=== PATIENT | female | born 1955 | race Hispanic/Latino ===

== ENCOUNTER 2017-10-22 02:14 | Emergency (ER) | payer OTHER ==
[2017-10-22 02:51] LABS: #Basophils 0.1 thou/uL (0.0-0.2); #Eosinphils 0.4 thou/uL (0.0-0.7); #Lymphocytes 1.9 thou/uL (1.20-3.40); #Monocytes 0.8 thou/uL (0.11-0.59); #Neutrophils 9.3 thou/uL (1.40-6.50); %Basophils 0.5 % (0.0-1.0); %Eosinophils 3.1 % (0.0-10.0); %Lymphocytes 15.3 % (21.0-51.0); %Monocytes 6.2 % (0.0-10.0); Hematocrit 36.9 % (36.0-47.0); Mean Platelet Volume 8.1 fL (7.4-10.4); White Blood Cell (WBC) Count 12.4 thou/uL (4.8-10.8)
[2017-10-22 03:13] LABS: ALT (SGPT) 14 U/L (8-55); AST (SGOT) 15 U/L (5-34); Alkaline Phosphatase 160 U/L (40-150); Anion Gap 14 mmol/L (10-20); BUN (Urea Nitrogen) 52 mg/dL (9.8-20.1); Bilirubin, Total 0.6 mg/dL (0.2-1.2); CK (CPK) 221 U/L (29-168); Calc. Creatinine Clearance 0 mL/min (70-130); Calcium 9.2 mg/dL (7.8-10.44); Carbon Dioxide 26 mmol/L (23-31); Chloride 104 mmol/L (98-107); Estimated GFR-MDRD 8; Globulin 4.1 g/dL (2.4-3.5); Protein, Total 7.7 g/dL (6.0-8.3)
[2017-10-22 03:29] LABS: Troponin I 0.014 ng/mL (< 0.028)
[2017-10-22] MEDS ORDERED: hydrOXYzine 25 MG TAB ONE (05:57)
--- NOTE | 2017-10-22 07:45 | RAD ---
EXAM: CHEST 2 VIEWS: HISTORY: Dyspnea. COMPARISON: None. FINDINGS: Upper normal cardiac silhouette. Pulmonary vessels are slightly prominent. Patchy interstitial opac ities with more focal alveolar consolidation in the right upper lobe. No pleural effusion. No pneum othorax. IMPRESSION: 1. Upper normal cardiac silhouette with mild pulmonary vascular prominence. 2. Possible volume overload with interstitial edema and focal alveolar opacity in the right upper lo be. Continued surveillance. POS: [facility]
--- NOTE | 2017-11-27 14:19 | EKG ---
Test Reason : Blood Pressure : / mmHG Vent. Rate : 097 BPM Atrial Rate : 097 BPM P-R Int : 120 ms QRS Dur : 074 ms QT Int : 342 ms P-R-T Axes : 022 026 051 degrees QTc Int : 434 ms Normal sinus rhythm with sinus arrhythmia Normal ECG Confirmed by JAMES HOU D.O. ([id number]), newspaper editor MARGOTH ROPER ([id number]) on 11/27/2017 2:19:28 PM Referred By: Confirmed By:JAMES HOU D.O.
== END 2017-10-22 06:05 | disposition home or self-care (01) ==
LOC: ERS 02:14
DX: R07.89 Other chest pain (principal); I12.0 Hypertensive chronic kidney disease with stage 5 chronic kidney disease or end stage renal disease; N18.6 End stage renal disease; Z99.2 Dependence on renal dialysis
CPT/HCPCS: 71020; 80053; 82550; 82553; 84484; 85025; 93005

== ENCOUNTER 2017-12-13 13:56 | Emergency (ER) | payer OTHER ==
[2017-12-13 15:19] LABS: #Basophils 0.1 thou/uL (0.0-0.2); #Eosinphils 0.5 thou/uL (0.0-0.7); #Monocytes 0.6 thou/uL (0.11-0.59); #Neutrophils 6.7 thou/uL (1.40-6.50); %Eosinophils 5.3 % (0.0-10.0); %Lymphocytes 19.9 % (21.0-51.0); %Monocytes 6.2 % (0.0-10.0); %Neutrophils 67.6 % (42.0-75.0); Hemoglobin 11.5 g/dL (12.0-16.0); Mean Corpuscular HGB CONC 32.4 g/dL (32.0-36.0); Mean Corpuscular Volume 96.5 fL (81.0-99.0); Mean Platelet Volume 8.5 fL (7.4-10.4); Platelet Count 212 thou/uL (130-400); RBC Distribution Width 12.2 % (11.5-14.5); Red Blood Cell (RBC) Count 3.72 mill/uL (4.20-5.40); White Blood Cell (WBC) Count 9.9 thou/uL (4.8-10.8)
[2017-12-13 15:45] LABS: ALT (SGPT) 18 U/L (8-55); AST (SGOT) 17 U/L (5-34); Albumin 3.8 g/dL (3.4-4.8); Alkaline Phosphatase 187 U/L (40-150); Anion Gap 15 mmol/L (10-20); BUN (Urea Nitrogen) 59 mg/dL (9.8-20.1); Bilirubin, Total 0.5 mg/dL (0.2-1.2); Calc. Creatinine Clearance 0 mL/min (70-130); Calcium 9.3 mg/dL (7.8-10.44); Carbon Dioxide 25 mmol/L (23-31); Chloride 103 mmol/L (98-107); Estimated GFR-MDRD 7; Glucose 166 mg/dL (80-115); Potassium 5.1 mmol/L (3.5-5.1); Protein, Total 7.8 g/dL (6.0-8.3); Sodium 138 mmol/L (136-145)
== END 2017-12-13 15:55 | disposition left against medical advice (07) ==
LOC: ERS 13:56
DX: Z53.21 Procedure and treatment not carried out due to patient leaving prior to being seen by health care provider (principal)
CPT/HCPCS: 36415; 80053; 85025

== ENCOUNTER 2018-01-12 22:25 | Emergency (ER) | payer OTHER ==
--- NOTE | 2018-01-12 23:35 | RAD ---
TWO VIEW CHEST 01/12/18 COMPARISON: 10/22/17 INDICATION: Cough. FINDINGS: there is no consolidation, effusion or pneumothorax The cardiac silhouette is at upper limits of norm al in size. There is vascular calcifications and osseous degenerative change. Metallic clips overlie the right abdomen. IMPRESSION: No focal consolidation. POS: [facility]
== END 2018-01-13 00:35 | disposition home or self-care (01) ==
LOC: ERS 22:25
DX: J11.1 Influenza due to unidentified influenza virus with other respiratory manifestations (principal); I12.0 Hypertensive chronic kidney disease with stage 5 chronic kidney disease or end stage renal disease; N18.6 End stage renal disease; F41.9 Anxiety disorder, unspecified; F32.9 Major depressive disorder, single episode, unspecified; Z99.2 Dependence on renal dialysis
CPT/HCPCS: 71046; 93005

== ENCOUNTER 2018-04-27 16:51 | Emergency (ER) | payer OTHER ==
[2018-04-27] MEDS ORDERED: HYDROcodone/Acetaminophen 10/325 mg Tablet ONE (17:33)
--- NOTE | 2018-04-27 18:04 | RAD ---
RIGHT WRIST: 04/27/18 Three views. INDICATIONS: Fall with injury and pain to right wrist. Bones show osteopenia. No evidence of fracture identified. IMPRESSION: 1. No evidence of acute fracture. 2. Osteopenia which appears more prominent than expected for patient's age. Recommend clinical c orrelation. POS: [facility]
--- NOTE | 2018-04-27 18:05 | RAD ---
RIGHT KNEE: 04/27/18 Four views. HISTORY: Fall with injury to right knee. There are mild degenerative changes. There is a subchondral lesion involving the medial femoral condy le which could represent osteochondral lesion. There is no evidence of fracture. No evidence of joint effusion. IMPRESSION: 1. No evidence of acute fracture. 2. Degenerative change. Evidence of an osteochondral lesion involving the medial femoral condyle . POS: [facility]
== END 2018-04-27 19:42 | disposition home or self-care (01) ==
LOC: ERS 16:51
DX: S63.501A Unspecified sprain of right wrist, initial encounter (principal); S80.01XA Contusion of right knee, initial encounter; M85.661 Other cyst of bone, right lower leg; W01.0XXA Fall on same level from slipping, tripping and stumbling without subsequent striking against object, initial encounter

== ENCOUNTER 2018-08-04 14:41 | Emergency (ER) | payer OTHER ==
[2018-08-04] MEDS ORDERED: Ketorolac Tromethamine 60 MG/2 ML VIAL ONE (17:32)
[2018-08-04 17:45] LABS: Bilirubin Negative (Negative); Blood, Urine Small (Negative); Clarity CLEAR (Clear); Glucose, Urine (Dipstick) 250 mg/dL (Negative); Leukocyte Negative (Negative); Nitrite Negative (Negative); Protein, Urine (Dipstick) 100 mg/dL (Neg-Trace); Urobilinogen 0.2 mg/dL (0.2-1.0)
[2018-08-04 17:47] LABS: Bacteria/HPF None Seen HPF (None Seen); Hyaline Casts/LPF 0-3 HYALINE CAST LPF (0-3 Hyaline); Pathc Cast-AUWi Flag 0.58 (0-2.49); Squamous Epithelial 0-3 HPF (0-3); WBC/HPF None Seen HPF (0-3)
[2018-08-04] MEDS ORDERED: Methocarbamol 500 MG TAB PO SCH (18:45)
== END 2018-08-04 20:33 | disposition home or self-care (01) ==
LOC: ERS 14:41
DX: M54.9 Dorsalgia, unspecified (principal); I13.2 Hypertensive heart and chronic kidney disease with heart failure and with stage 5 chronic kidney disease, or end stage renal disease; I50.9 Heart failure, unspecified; E11.22 Type 2 diabetes mellitus with diabetic chronic kidney disease; N18.6 End stage renal disease; E78.5 Hyperlipidemia, unspecified; F41.9 Anxiety disorder, unspecified; F32.9 Major depressive disorder, single episode, unspecified
CPT/HCPCS: 81003; 81015; 96372; J1885

== ENCOUNTER 2019-02-02 22:28 | Observation (INO) | payer OTHER ==
[2019-02-02 23:32] LABS: #Basophils 0.1 thou/uL (0.0-0.2); #Eosinphils 0.4 thou/uL (0.0-0.7); #Lymphocytes 1.9 thou/uL (1.20-3.40); #Monocytes 0.5 thou/uL (0.11-0.59); #Neutrophils 5.9 thou/uL (1.40-6.50); %Basophils 0.8 % (0.0-1.0); %Eosinophils 4.5 % (0.0-10.0); %Lymphocytes 21.4 % (21.0-51.0); %Monocytes 5.6 % (0.0-10.0); %Neutrophils 67.7 % (42.0-75.0); Hemoglobin 12.5 g/dL (12.0-16.0); Mean Corpuscular HGB CONC 32.6 g/dL (32.0-36.0); Mean Corpuscular Hemoglobin 31.7 pg (27.0-31.0); Mean Corpuscular Volume 97.4 fL (78.0-98.0); Mean Platelet Volume 8.4 fL (7.4-10.4); Platelet Count 258 thou/uL (130-400); RBC Distribution Width 13.5 % (11.5-14.5); Red Blood Cell (RBC) Count 3.95 mill/uL (4.20-5.40); White Blood Cell (WBC) Count 8.8 thou/uL (4.8-10.8)
[2019-02-02] MEDS ORDERED: Aspirin 325 MG TAB ONE (23:43)
--- NOTE | 2019-02-02 23:49 | RAD ---
CHEST ONE VIEW: Indication: Dyspnea. Comparison: 07-31-17 FINDINGS: The lungs are clear. Heart size is within normal limits. There are stable vascular calcifications inv olving the aortic arch. Chronic osseous changes are stable. IMPRESSION: No acute cardiopulmonary abnormality. POS: [facility]
[2019-02-02 23:53] LABS: ALT (SGPT) 15 U/L (8-55); AST (SGOT) 16 U/L (5-34); Albumin 3.7 g/dL (3.4-4.8); Alkaline Phosphatase 142 U/L (40-150); Anion Gap 15 mmol/L (10-20); BUN (Urea Nitrogen) 53 mg/dL (9.8-20.1); Bilirubin, Total 0.6 mg/dL (0.2-1.2); Calc. Creatinine Clearance 0 mL/min (70-130); Calcium 9.2 mg/dL (7.8-10.44); Carbon Dioxide 24 mmol/L (23-31); Chloride 101 mmol/L (98-107); Estimated GFR-MDRD 6; Globulin 3.9 g/dL (2.4-3.5); Glucose 268 mg/dL (80-115); Potassium 5.2 mmol/L (3.5-5.1); Protein, Total 7.6 g/dL (6.0-8.3); Sodium 135 mmol/L (136-145)
[2019-02-03 03:02] LABS: Troponin I Less than 0.010 ng/mL (< 0.028)
[2019-02-03] MEDS ORDERED: Acetaminophen 325 MG TAB ONE (05:29)
[2019-02-03 06:24] LABS: Troponin I Less than 0.010 ng/mL (< 0.028)
[2019-02-03] MEDS ORDERED: Ondansetron PF 4 MG/2 ML Vial IVP PRN (10:08)
[2019-02-03] MEDS ORDERED: Ondansetron ODT 4 MG TAB PO PRN (10:08)
[2019-02-03] MEDS ORDERED: Loperamide HCl 2 MG CAP PO PRN (10:08)
[2019-02-03] MEDS ORDERED: Acetaminophen 325 MG TAB PO PRN (10:08)
[2019-02-03] MEDS ORDERED: Senokot S 8.6-50 MG TAB PO PRN (10:08)
[2019-02-03] MEDS ORDERED: Enoxaparin Sodium 30 MG/0.3 ML SYRINGE SC SCH (10:15)
[2019-02-03] MEDS ORDERED: Nitroglycerin 0.4 MG TAB 1 EACH PO PRN (10:24)
[2019-02-03] MEDS ORDERED: Nitroglycerin 0.4 MG TAB 1 EACH ONE (10:35)
[2019-02-03] MEDS ORDERED: Metoprolol Tartrate 25 MG TAB PO SCH (21:00)
[2019-02-04] MEDS ORDERED: Furosemide 40 MG TAB PO SCH (09:00)
[2019-02-04] MEDS ORDERED: Atorvastatin Calcium 20 MG TAB PO SCH (09:00)
[2019-02-04] MEDS ORDERED: Aspirin 81 mg Enteric Coated Tablet PO SCH (09:00)
== END 2019-02-03 14:23 | disposition home or self-care (01) ==
LOC: ERS 22:28 → ERHOLD 02-03 02:00
PROVIDERS: ADMIT Internal Medicine; ATTEND Internal Medicine
DX: R06.02 Shortness of breath (principal); R07.89 Other chest pain; I13.2 Hypertensive heart and chronic kidney disease with heart failure and with stage 5 chronic kidney disease, or end stage renal disease; E11.22 Type 2 diabetes mellitus with diabetic chronic kidney disease; N18.6 End stage renal disease; I50.9 Heart failure, unspecified; E03.9 Hypothyroidism, unspecified; E78.5 Hyperlipidemia, unspecified; E78.00 Pure hypercholesterolemia, unspecified; F41.9 Anxiety disorder, unspecified; F32.9 Major depressive disorder, single episode, unspecified; Z79.4 Long term (current) use of insulin; Z88.2 Allergy status to sulfonamides; Z99.2 Dependence on renal dialysis
CPT/HCPCS: 36415; 71045; 80053; 83880; 84484; 85025; 93005; 94760; G0378

== ENCOUNTER 2019-12-19 06:55 | Emergency (ER) | payer OTHER, SELFPAY ==
--- NOTE | 2019-12-19 07:46 | RAD ---
XR Ankle Lt 3 View STANDARD History: Fall. Pain. Comparison: None. Findings: Transverse and arterial medial malleolar fracture. Obliquely oriented distal tibial fractur e through the syndesmosis. Although not well seen, dorsal to be a posterior malleolar fracture. High-grade midfoot degenerative change. Large plantar calcaneal spur. Impression: Trimalleolar fracture with minimal lateral talar shift.
[2019-12-19] MEDS ORDERED: Morphine 4 MG/ML VIAL ONE (08:59)
--- NOTE | 2019-12-19 10:05 | CT ---
EXAM: CT brain without contrast HISTORY: Fall with head trauma COMPARISON: None TECHNIQUE: Multiple contiguous axial images were obtained and a CT of the brain without contrast. FINDINGS: The brain is normal in morphology and attenuation without focal lesions or confluent areas of infarction. There is no evidence of hydrocephalus, intracranial hemorrhage, or extra-axial fluid collection. The calvarium and overlying soft tissues are unremarkable. The visualized paranasal sinuses and masto id air cells are well aerated. IMPRESSION: No evidence of acute intracranial abnormality
== END 2019-12-19 12:00 | disposition home or self-care (01) ==
LOC: ERS 06:55
DX: S82.852A Displaced trimalleolar fracture of left lower leg, initial encounter for closed fracture (principal); E03.9 Hypothyroidism, unspecified; I50.9 Heart failure, unspecified; E78.5 Hyperlipidemia, unspecified; E11.22 Type 2 diabetes mellitus with diabetic chronic kidney disease; I13.2 Hypertensive heart and chronic kidney disease with heart failure and with stage 5 chronic kidney disease, or end stage renal disease; N18.6 End stage renal disease; F41.9 Anxiety disorder, unspecified; F32.9 Major depressive disorder, single episode, unspecified; W01.0XXA Fall on same level from slipping, tripping and stumbling without subsequent striking against object, initial encounter
CPT/HCPCS: 27818; 70450; 96372; J2270

== ENCOUNTER 2020-03-29 02:12 | Emergency (ER) | payer OTHER, SELFPAY ==
[2020-03-29 02:44] LABS: #Eosinphils 0.4 thou/uL (0.0-0.7); #Lymphocytes 1.7 thou/uL (1.20-3.40); #Monocytes 0.6 thou/uL (0.11-0.59); #Neutrophils 10.9 thou/uL (1.40-6.50); %Basophils 0.1 % (0.0-1.0); %Eosinophils 2.8 % (0.0-10.0); %Lymphocytes 12.2 % (21.0-51.0); %Monocytes 4.3 % (0.0-10.0); %Neutrophils 80.6 % (42.0-75.0); Hemoglobin 11.8 g/dL (12.0-16.0); Mean Corpuscular HGB CONC 33.3 g/dL (32.0-36.0); Mean Corpuscular Hemoglobin 32.6 pg (27.0-31.0); Mean Platelet Volume 7.9 fL (7.4-10.4); Platelet Count 236 thou/uL (130-400); RBC Distribution Width 12.7 % (11.5-14.5); Red Blood Cell (RBC) Count 3.63 mill/uL (4.20-5.40); White Blood Cell (WBC) Count 13.5 thou/uL (4.8-10.8)
[2020-03-29 03:08] LABS: ALT (SGPT) 10 U/L (8-55); AST (SGOT) 12 U/L (5-34); Albumin 3.6 g/dL (3.4-4.8); Alkaline Phosphatase 111 U/L (40-110); Anion Gap 17 mmol/L (10-20); BUN (Urea Nitrogen) 37 mg/dL (9.8-20.1); Bilirubin, Total 0.6 mg/dL (0.2-1.2); Calc. Creatinine Clearance 0 mL/min (70-130); Calcium 8.4 mg/dL (7.8-10.44); Carbon Dioxide 26 mmol/L (23-31); Chloride 100 mmol/L (98-107); Estimated GFR-MDRD 6; Globulin 3.6 g/dL (2.4-3.5); Glucose 236 mg/dL (80-115); Potassium 5.6 mmol/L (3.5-5.1); Protein, Total 7.2 g/dL (6.0-8.3); Sodium 137 mmol/L (136-145)
--- NOTE | 2020-03-29 07:36 | RAD ---
Exam: Chest one view HISTORY:Dyspnea. Shortness of breath. Comparison: 02/02/2019 FINDINGS: Cardiac silhouette:Cardiomegaly. Aorta: Atherosclerosis. Pulmonary vessels: Normal Costophrenic angles: Bibasilar veil-like opacity suggesting pleural effusion LUNGS: Bibasilar interstitial and alveolar opacities. Pneumothorax: None Osseous abnormalities: None IMPRESSION: 1. Possible congestive heart failure. Superimposed airspace disease in the lung bases cannot be exclu ded. 2. Continued surveillance
--- NOTE | 2020-04-08 16:31 | EKG ---
Test Reason : EMERGENCY Blood Pressure : / mmHG Vent. Rate : 095 BPM Atrial Rate : 095 BPM P-R Int : 124 ms QRS Dur : 080 ms QT Int : 352 ms P-R-T Axes : 038 034 044 degrees QTc Int : 442 ms Normal sinus rhythm Possible Left atrial enlargement Borderline ECG Confirmed by GLENDA STEARNS ([id number]), material expeditor SANTIAGO BAER ([id number] on 04/08/2020 4:31:39 PM Referred By: Confirmed By:GLENDA STEARNS
== END 2020-03-29 04:10 | disposition home or self-care (01) ==
LOC: ERS 02:12
DX: I13.2 Hypertensive heart and chronic kidney disease with heart failure and with stage 5 chronic kidney disease, or end stage renal disease (principal); N18.6 End stage renal disease; I50.9 Heart failure, unspecified; R06.00 Dyspnea, unspecified; E11.22 Type 2 diabetes mellitus with diabetic chronic kidney disease; E03.9 Hypothyroidism, unspecified; E78.5 Hyperlipidemia, unspecified; E78.00 Pure hypercholesterolemia, unspecified; Z79.899 Other long term (current) drug therapy; Z79.4 Long term (current) use of insulin; F41.9 Anxiety disorder, unspecified; F32.9 Major depressive disorder, single episode, unspecified
CPT/HCPCS: 36415; 71045; 80053; 83880; 84484; 85025; 93005

== ENCOUNTER 2020-05-26 23:15 | Emergency (ER) | payer OTHER ==
--- NOTE | 2020-05-26 23:56 | RAD ---
XR Chest 1 View Portable History: Shortness of breath Comparison: Radiograph March 2020 Findings: Heart size mildly enlarged. Mild edema. Small effusions. No pneumothorax. No acute osseous abnormality. Impression: Moderate volume overload.
[2020-05-27 00:13] LABS: #Basophils 0.1 thou/uL (0.0-0.2); #Eosinphils 0.4 thou/uL (0.0-0.7); #Lymphocytes 2.1 thou/uL (1.20-3.40); #Monocytes 0.5 thou/uL (0.11-0.59); #Neutrophils 5.8 thou/uL (1.40-6.50); %Basophils 0.8 % (0.0-1.0); %Eosinophils 4.6 % (0.0-10.0); %Lymphocytes 23.7 % (21.0-51.0); %Monocytes 5.5 % (0.0-10.0); %Neutrophils 65.4 % (42.0-75.0); Hemoglobin 12.2 g/dL (12.0-16.0); Mean Corpuscular HGB CONC 33.3 g/dL (32.0-36.0); Mean Corpuscular Hemoglobin 32.2 pg (27.0-31.0); Mean Corpuscular Volume 96.7 fL (78.0-98.0); Mean Platelet Volume 9.3 fL (7.4-10.4); Platelet Count 226 thou/uL (130-400); RBC Distribution Width 12.4 % (11.5-14.5); White Blood Cell (WBC) Count 8.8 thou/uL (4.8-10.8)
[2020-05-27 00:38] LABS: ALT (SGPT) 12 U/L (8-55); AST (SGOT) 14 U/L (5-34); Albumin 3.8 g/dL (3.4-4.8); Alkaline Phosphatase 148 U/L (40-110); Anion Gap 15 mmol/L (10-20); BUN (Urea Nitrogen) 34 mg/dL (9.8-20.1); Bilirubin, Total 0.6 mg/dL (0.2-1.2); Calc. Creatinine Clearance 0 mL/min (70-130); Calcium 8.7 mg/dL (7.8-10.44); Carbon Dioxide 27 mmol/L (23-31); Chloride 100 mmol/L (98-107); Estimated GFR-MDRD 6; Globulin 3.9 g/dL (2.4-3.5); Glucose 289 mg/dL (80-115); Potassium 4.7 mmol/L (3.5-5.1); Protein, Total 7.7 g/dL (6.0-8.3); Sodium 137 mmol/L (136-145)
[2020-05-27 00:57] LABS: CKMB 4.5 ng/mL (0-6.6)
== END 2020-05-27 01:38 | disposition home or self-care (01) ==
LOC: ERS 23:15
DX: R06.00 Dyspnea, unspecified (principal); E03.9 Hypothyroidism, unspecified; E78.5 Hyperlipidemia, unspecified; F41.9 Anxiety disorder, unspecified; E11.22 Type 2 diabetes mellitus with diabetic chronic kidney disease; I13.2 Hypertensive heart and chronic kidney disease with heart failure and with stage 5 chronic kidney disease, or end stage renal disease; I50.9 Heart failure, unspecified; N18.6 End stage renal disease
CPT/HCPCS: 71045; 80053; 82553; 84484; 85025; 93005

== ENCOUNTER 2020-08-27 09:46 | Observation (INO) | payer OTHER ==
--- NOTE | 2020-08-27 10:20 | RAD ---
XR Chest 1 View Portable HISTORY: Chest pain patient on dialysis COMPARISON: 07/05/2020 FINDINGS: The heart size is at upper limits of normal. The aorta is tortuous. There is elevation the right hemidiaphragm. The lungs are without focal areas of consolidation, pneumothorax or pleural effusions. IMPRESSION: No radiographic evidence of acute cardiopulmonary process.
[2020-08-27 10:24] LABS: #Basophils 0.1 thou/uL (0.0-0.2); #Eosinphils 0.3 thou/uL (0.0-0.7); #Lymphocytes 1.7 thou/uL (1.20-3.40); #Monocytes 0.5 thou/uL (0.11-0.59); %Basophils 0.8 % (0.0-1.0); %Eosinophils 4.2 % (0.0-10.0); %Lymphocytes 22.4 % (21.0-51.0); %Monocytes 6.5 % (0.0-10.0); %Neutrophils 66.2 % (42.0-75.0); Hemoglobin 11.9 g/dL (12.0-16.0); Mean Corpuscular HGB CONC 33.3 g/dL (32.0-36.0); Mean Corpuscular Hemoglobin 32.7 pg (27.0-31.0); Mean Corpuscular Volume 98.2 fL (78.0-98.0); Mean Platelet Volume 8.5 fL (7.4-10.4); Platelet Count 222 thou/uL (130-400); RBC Distribution Width 12.7 % (11.5-14.5); Red Blood Cell (RBC) Count 3.62 mill/uL (4.20-5.40); White Blood Cell (WBC) Count 7.5 thou/uL (4.8-10.8)
[2020-08-27 11:00] LABS: ALT (SGPT) 13 U/L (8-55); AST (SGOT) 28 U/L (5-34); Albumin 3.7 g/dL (3.4-4.8); Alkaline Phosphatase 152 U/L (40-110); Anion Gap 13 mmol/L (10-20); BUN (Urea Nitrogen) 20 mg/dL (9.8-20.1); Bilirubin, Total 0.7 mg/dL (0.2-1.2); Calc. Creatinine Clearance 0 mL/min (70-130); Calcium 8.9 mg/dL (7.8-10.44); Carbon Dioxide 29 mmol/L (23-31); Chloride 98 mmol/L (98-107); Estimated GFR-MDRD 13; Globulin 4.1 g/dL (2.4-3.5); Glucose 173 mg/dL (80-115); Potassium 4.1 mmol/L (3.5-5.1); Protein, Total 7.8 g/dL (6.0-8.3); Sodium 136 mmol/L (136-145)
--- NOTE | 2020-08-27 12:15 | PDOC.FPRHP ---
- History of Present Illness Chief Complaint: Chest Pain History of Present Illness: This is a 64 y/o F with a PMHx of IDDM, ESRD MWF, HFpEF, hypothyroidism, IBS, recent mitral valve repair who presented today after experiencing chest pain during dialysis today. 30 minutes prior to finishing her dialysis she developed crushing, L sided substernal chest pain which lasted for 20 minutes. The pain did not radiate down her arms, but radiated to her back. She denied tingling/numbness of one side of her body and denied facial droop and slurred speech as well. She did not experience diaphoresis or SOB during this episode either. She states that she has not experienced pain like this before and admits to prior TN 7 years ago, however, she did not go to the hospital for his. When asked about her prior admission in June for CHF exacerbation and for which she had to be transferred to [facility] in [place] for mitral valve repair, she denies following up with a studio engineer after this and denies being on anticoagulants. She does not know what exactly happened during her hospitalization there. ED Course: Given ASA during EMS transport. - Allergies/Adverse Reactions Allergies Allergy/AdvReac Type Severity Reaction Status Date / Time sulfamethoxazole Allergy Verified 07/05/20 21:30 [From Bactrim] trimethoprim [From Bactrim] Allergy Verified 07/05/20 21:30 - Home Medications Medication Instructions Recorded Confirmed Type Docusate [Colace] 100 mg PO DAILY 07/31/17 07/31/17 History Levothyroxine Sodium 75 mcg PO DAILY 07/31/17 08/27/20 History Lubiprostone [Amitiza] 24 mcg PO BID 07/31/17 08/27/20 History Spironolactone 25 mg PO DAILY 07/31/17 08/27/20 History glipiZIDE [glipiZIDE ER] 2.5 mg PO QAM-WM 07/31/17 07/06/20 History Aspirin 81 mg PO DAILY #30 tab 08/01/17 08/27/20 Rx Furosemide 40 mg PO QAM #30 tablet 02/03/19 Rx Nitroglycerin 0.4 mg SL ASDIR 30 Days #30 02/03/19 08/27/20 Rx tab.subl Pantoprazole [Protonix] 40 mg PO DAILY #30 tab 02/03/19 08/27/20 Rx Acetaminophen With Codeine 1 tab PO Q6HR PRN 07/06/20 07/06/20 History [Tylenol with Codeine #3] Insulin Detemir [Levemir Flextouch] 20 units SC HS 07/06/20 07/06/20 History Insulin Glargine,Hum.Rec.Anlog 33 units SC DAILY 07/06/20 07/06/20 History [Lantus] Lidocaine 30 gm TOP PRN PRN 07/06/20 07/06/20 History Patiromer Calcium Sorbitex 1 pack PO DAILY 07/06/20 07/06/20 History [Veltassa] Sertraline HCl [Zoloft] 25 mg PO DAILY 07/06/20 08/27/20 History Sevelamer Carbonate [Renvela] 1,600 mg PO TID-WM 07/06/20 08/27/20 History Atorvastatin Calcium [Lipitor] 40 mg PO DAILY 08/27/20 08/27/20 History - History PMHx: -ESRD MWF -IDDM, type 2 -HFpEF -recent mitral valve repair PSHx: -mitral valve repair/replacement -cholecystecomy FHx: -Mom: CAD, stroke, breast cancer -Sister: cancer -Brother: stroke Social: -no tobacco, drug, etoh use. - Review of Systems General: denies: fever/chills Eyes: denies: eye pain, vision changes ENT: denies: nasal congestion, rhinorrhea Respiratory: denies: cough, congestion Cardiovascular: reports: chest pain. denies: palpitation, edema Gastrointestinal: denies: nausea, vomiting, diarrhea, constipation Genitourinary: denies: incontinence, dysuria, polyuria Skin: denies: rashes, lesions, jaundice Musculoskeletal: denies: pain, tenderness, stiffness, swelling Neurological: denies: numbness, syncope, seizure, weakness Psychological: reports: depression - Vital signs BP: 178/81, MAP: 113, Pulse: 74, Resp: 15, Pain: 0, O2 sat: 100 on (Room Air), Time: 08/27/2020 11:09. - Physical Exam Constitutional: NAD, awake, alert and oriented, well developed HEENT: normocephalic and atraumatic, PERRLA Neck: supple Chest: other (mildly tender to palpation of sternum) Heart: RRR, normal S1/S2, no murmurs/rubs/gallops, pulses present, no edema Lungs: CTAB, no respiratory distress, good air movement, no rales/rhonchi Abdomen: soft, non-tender, bowel sounds present, no masses/distention Musculoskeletal: normal structure, normal tone, ROM grossly normal Neurological: no focal deficit, CN II-XII intact, normal sensation Skin: no rash/lesions, good turgor, capillary refill <2 seconds Heme/Lymphatic: no unusual bruising or bleeding Psychiatric: normal mood and affect, other (poor historian) FMR H&P: Results - Labs Result Diagrams: 08/27/20 10:04 08/27/20 10:04 Lab results: WBC 7.5 thou/uL (4.8-10.8) 08/27/20 10:04 Hgb 11.9 g/dL (12.0-16.0) L 08/27/20 10:04 Hct 35.6 % (36.0-47.0) L 08/27/20 10:04 MCV 98.2 fL (78.0-98.0) H 08/27/20 10:04 Plt Count 222 thou/uL (130-400) 08/27/20 10:04 Neutrophils % 66.2 % (42.0-75.0) 08/27/20 10:04 Sodium 136 mmol/L (136-145) 08/27/20 10:04 Potassium 4.1 mmol/L (3.5-5.1) 08/27/20 10:04 Chloride 98 mmol/L (98-107) 08/27/20 10:04 Carbon Dioxide 29 mmol/L (23-31) 08/27/20 10:04 BUN 20 mg/dL (9.8-20.1) 08/27/20 10:04 Creatinine 3.60 mg/dL (0.6-1.1) H 08/27/20 10:04 Glucose 173 mg/dL (80-115) H 08/27/20 10:04 Calcium 8.9 mg/dL (7.8-10.44) 08/27/20 10:04 Total Bilirubin 0.7 mg/dL (0.2-1.2) 08/27/20 10:04 AST 28 U/L (5-34) 08/27/20 10:04 ALT 13 U/L (8-55) 08/27/20 10:04 Alkaline Phosphatase 152 U/L (40-110) H 08/27/20 10:04 B-Natriuretic Peptide 243.1 pg/mL (0-100) H 08/27/20 10:04 Serum Total Protein 7.8 g/dL (6.0-8.3) 08/27/20 10:04 Albumin 3.7 g/dL (3.4-4.8) 08/27/20 10:04 - Radiology Interpretation Chest x-ray Status: report reviewed by me (tortuous aorta; no acute cardiopulomary process) FMR H&P: A/P - Plan This is a 64 y/o F with a PMHx of IDDM, ESRD MWF, HFpEF, IBS, hypothyroidism, recent mitral valve repair who presented with chest pain. ##Atypical Angina Presented with chest pain during dialysis today. Has had recent mitral valve repair, has some pain reproducible on palpation, however has heart score of 4, a moderate score. Initial EKG NR, with non specific ST changes -VSS -initial trop 0.017, will trend these -CXR negative for acute processes, tortuous aorta noted -continue home meds, including ASA -will repeat EKG -will need to obtain records from [facility] in [place] for more information about recent hospitalization and mitral valve repair as this will help us determine if she will need further testing ESRD MWF -pt's imaging technician based on records is Dr. Landis -pt had course of dialysis today, short of 30 minutes -home meds Chronic Conditions: ##HFpEF: based on recent echo, seems euvolemic at this time, will continue home meds ##HTN: continue home meds ##IDDM: continue home meds, mild SSI, continue to monitor ##Hypothyroidism: continue home meds ##IBS: continue home meds ##Anemia: most likely of chronic disease Hgb: 11.9, will monitor CODE: FULL DIET: HH VTE: Heparin PCP: Carlos Alberto Guerin Dispo: admitted to telemetry, expected LOS < 48 hours. FMR H&P: Upper Level - Plan Date/Time: 08/27/20 1214 I, David Kenny DO, have evaluated this patient and agree with findings/plan as outlined by customer marketing intern resident. Pertinent changes/additions are listed here. This is a 64 yo female with a pmh of mild CAD, ESRD, mitral valve regurgitation, HTN, HLD, hypothyroidism who presents to the ER with a cc of chest pain. She states the pain occurred just [employer] while she was at dialysis. She began having chest pain with associated back pain. She states that the pain was an 7-8/10, crushing, and last for about 20 minutes before resolving spontaneously. She denies SOB, nausea, vomiting, or radiation. She reports that in the past, she has had trouble with her heart and states that this pain is different than before. She was recently admitted to the hospital 2 months ago for SOB at which time, she was deemed to have severe mitral valve regurtitation and CHF exacerbation. Her TTE at that time showed an LVEF of 60-65%, grade 2/3 diastolic dysfunction. Her RVSP was 49mmHg. A KATERINE showed mitral valve prolapse of the anterior leaflet with severe mitral regurgitation. She was transferred to [facility] in [place] for mitral valve repair. In addition, she reports that 2 days ago she fell out of her wheelchair two days ago. She denies head trauma and states she fell on her buttocks. Objective: BP: 170/88, HR 80, RR 16, Temp 98.0, SpO2 100% RA, Wt 81kg General: NAD HEENT: MMM, AT/NC Cardio: RRR, no murmur with lawrence or diaphragm Chest: Left sided pain with palpation consistent with previous pain Respiratory: Mild basilar crackles Abdomen: Soft, non-tender, BS+ Extremities: No edema, pulses present A/P Atypical chest pain likely 2/2 MSK vs GERD -Admit to tele obs -Trop neg x2, CXR wnl, BNP 243 -Pt recently has mitral valve clipping and likely had heart cath at that time. We will attempted to obtain outside records from [facility] -Consult cardiology for further recommendations -May be related to recent fall -S/P Aspirin 324 -Nitro prn chest pain HTN -Continue home meds -PRN meds available ESRD -Pt had all but 30 minutes of dialysis today, will consult nephrology if needed HLD -Continue home meds HFpEF -Continue home medications Code: Full Prophylaxis: Heparin Family: None at bedside Fluids: SL Diet: Renal, NPO after midnight Disposition: DC in 1-2 days PCP: [facility]
[2020-08-27] MEDS ORDERED: Insulin Regular 300 UNITS/3 ML VIAL SC PRN (12:53)
[2020-08-27] MEDS ORDERED: Dextrose 5% in Water 1,000 ML IV PRN (12:53)
[2020-08-27] MEDS ORDERED: Dextrose 50% Abboject 50 ML SYRINGE SLOW IVP PRN (12:53)
[2020-08-27] MEDS ORDERED: HumaLOG 300 UNITS/3 ML VIAL SC PRN (12:53)
[2020-08-27] MEDS ORDERED: Nitroglycerin 0.4 MG TAB 1 EACH SL SCH (13:15)
[2020-08-27 13:27] LABS: Troponin I 0.018 ng/mL (< 0.028)
[2020-08-27 16:47] LABS: Troponin I 0.016 ng/mL (< 0.028)
[2020-08-27] MEDS: Heparin 5,000 UNITS/ML VIAL SC SCH ×2 (16:56→21:45)
[2020-08-27] MEDS: Sevelamer Carbonate 800 MG TAB PO SCH (18:22)
--- NOTE | 2020-08-27 19:31 | HP ---
HISTORY OF PRESENT ILLNESS: I have discussed the case with Dr. Rosmery Tran and have examined the patient. Briefly, Ms. Nettles is a very pleasant 64-year-old end-stage renal disease patient, on hemodialysis. She was at dialysis today when she experienced sudden onset of left-sided severe chest pain that lasted for about 20 minutes. It did not radiate into her arms or neck. She did not experience any diaphoresis or shortness of breath. She was transported here for further evaluation. She claims that she may have had a heart attack "7 years ago." She also recently was at [facility] in [place] for mitral valve repair and for heart failure exacerbation. We will try to obtain these records as it may workup of her problems here. PHYSICAL EXAMINATION: VITAL SIGNS: Her blood pressure is 170/80, pulse is 74, respirations are 15, O2 saturation on room air is 100%. GENERAL: She is awake, alert, in no distress. No chest pain. EARS, NOSE, THROAT: No erythema or exudate. CARDIAC: Heart rhythm regular. S4 gallop. No murmur or rub noted. LUNGS: Clear without rales or wheezes. ABDOMEN: Obese, flat, soft. NEUROLOGICAL: No focal deficits. EXTREMITIES: No edema. LABORATORY DATA: CBC; white count 7500, hemoglobin 11.9, hematocrit 35.6 with an MCV of 98. Chemistries; sodium 136, potassium 4.1, chloride 98, bicarb 29, BUN 20, creatinine 3.6, glucose is 173. Troponin is 0.017 and 3 hours later was 0.018. IMAGING DATA: EKG does not show any ST-segment elevations. ASSESSMENT: Atypical chest pain. PLAN: We will continue to trend troponins. We will attempt to obtain [facility] records and our further workup will depend on this. Job ID: [id number]
[2020-08-27 19:57] VITALS: BMI 32.8
[2020-08-27] MEDS ORDERED: Insulin Glargine 20 UNITS in Pre-Filled Syringe 1 EACH SC SCH (21:00)
[2020-08-27] MEDS ORDERED: Non-Formulary Item 1 EACH (Insulin Detemir [Levemir Flextouch] 100 UNIT/ML Insuln.Pen) SC SCH (21:00)
[2020-08-27] MEDS: Lubiprostone 24 MCG CAP PO SCH (21:44)
[2020-08-28 05:35] LABS: Anion Gap 15 mmol/L (10-20); BUN (Urea Nitrogen) 29 mg/dL (9.8-20.1); Calc. Creatinine Clearance 14 mL/min (70-130); Calcium 8.3 mg/dL (7.8-10.44); Carbon Dioxide 24 mmol/L (23-31); Chloride 100 mmol/L (98-107); Estimated GFR-MDRD 9; Glucose 152 mg/dL (80-115); Potassium 4.3 mmol/L (3.5-5.1); Sodium 135 mmol/L (136-145)
[2020-08-28] MEDS: Acetaminophen 325 MG TAB PO PRN ×2 (05:40→16:42)
[2020-08-28 05:49] LABS: Band 2 % (5-11); Eosinophils 4 % (0-10); Hemoglobin 10.9 g/dL (12.0-16.0); Lymphocytes 18 % (21-51); MDiff Complete? YES; Mean Corpuscular Hemoglobin 32.3 pg (27.0-31.0); Mean Platelet Volume 8.6 fL (7.4-10.4); Monocytes 5 % (0-10); Neutrophil 71 % (42-75); Platelet Count 205 thou/uL (130-400); Platelet Morphology Comment Appears Adequate; RBC Distribution Width 12.7 % (11.5-14.5); RBC Morphology Normal; Red Blood Cell (RBC) Count 3.36 mill/uL (4.20-5.40); White Blood Cell (WBC) Count 7.3 thou/uL (4.8-10.8)
--- NOTE | 2020-08-28 05:52 | PDOC.FM ---
- Subjective Subjective: Patient is sitting in bed. She states she no longer has chest pain, denies shortness of breath, no abdominal complaints. She notes that she has been having a lot of pain in her right calf x 1 week. States she does not recall injuring it, denies swelling. - Objective MAR Reviewed: Yes Vital Signs & Weight: Vital Signs (12 hours) Temp Pulse Resp BP Pulse Ox 08/28/20 04:00 98.1 F 73 16 124/58 L 95 08/27/20 20:06 98.1 F 75 16 147/68 H 94 L Weight Weight 76.385 kg I&O: 08/26/20 08/27/20 08/28/20 06:59 06:59 06:59 Intake Total 370 Balance 370 Result Diagrams: 08/28/20 04:39 08/28/20 04:39 Phys Exam - Physical Examination Constitutional: NAD HEENT: PERRLA, moist MMs Respiratory: no wheezing, clear to auscultation bilateral Cardiovascular: RRR, no significant murmur Gastrointestinal: soft, non-tender, positive bowel sounds Musculoskeletal: no edema +Moses sign RLE; left-sided chest wall tenderness to palpation Neurological: non-focal Dx/Plan - Plan Plan: Atypical chest pain likely 2/2 likely MSK vs GERD Trop neg x3, CXR wnl, BNP 243, EKG NR with nonspecific ST changes Heart cath in June showed Mild CAD, severe MR, Pulmonary artery HTN Mitral valve clipping at [facility] in June 2020, requested records - Continue to monitor on tele - Discussed with on-call cards: due to negative heart cath, neg troponins, and +chest wall tenderness, patient can f/u with Hand Splitter as planned 08/31/2020 RLE Pain, likely MSK, r/o DVT Patient is s/p recent mitral valve repair + Moses's sign - Venous US RLE ordered HTN -Continue home meds -PRN meds available GERD - continue home protonix ESRD, MWF -Pt had all but 30 min dialysis F -renally dose medications HLD -Continue home meds HFpEF -Continue home medications Code: Full Prophylaxis: Heparin Fluids: SL Diet: Renal Disposition: DC likely <48 hours PCP: [facility] Addendum - Attending - Attending Attestation Date/Time: 08/28/20 0912 I personally evaluated the patient and discussed the management with Dr. Mera. I agree with the History, Examination, Assessment and Plan documented above with any addition or exceptions noted below. Patient feels well, no recurrent chest pain. Will discuss case with cardiology, possible discharge later today.
[2020-08-28] MEDS ORDERED: Levothyroxine Sodium 75 MCG TAB PO SCH (06:00)
[2020-08-28] MEDS ORDERED: Spironolactone 25 MG TAB PO SCH (08:00)
[2020-08-28] MEDS: Heparin 5,000 UNITS/ML VIAL SC SCH ×2 (08:04→16:08)
[2020-08-28] MEDS: Sevelamer Carbonate 800 MG TAB PO SCH ×3 (08:05→16:35)
[2020-08-28] MEDS: Lubiprostone 24 MCG CAP PO SCH (08:05)
[2020-08-28] MEDS ORDERED: FLU VACC QS2020-21(6MOS UP)/PF 60 MCG/0.5 ML SYRINGE IM ONE (09:00)
[2020-08-28] MEDS ORDERED: Aspirin Chewable 81 MG TAB PO SCH (09:00)
[2020-08-28 12:08] LABS: SARS-CoV-2 MS2 Positive; SARS-CoV-2 N Gene Negative; SARS-CoV-2 S Gene Negative; SARS-CoV-2 by NAA Not Detected (NotDetected); SARS-CoV-2 orf1ab Negative
[2020-08-28 12:19] VITALS: BP 143/60; TEMP 98.3
--- NOTE | 2020-08-28 13:52 | ULT ---
RIGHT LOWER EXTREMITY VENOUS DUPLEX EXAM: 08/28/20 HISTORY: Right leg pain, swelling, calf pain Real time color Doppler evaluation of the right lower extremity was performed from groin to calf. Thi s includes evaluation of the common femoral, superficial and profunda femoral, saphenous, popliteal, and posterior tibial veins. This shows a patent deep venous system. There is normal compressibility a nd augmentation. There is no evidence of DVT. IMPRESSION: No evidence of DVT of thee right lower extremity. POS: [facility]
[2020-08-28] MEDS ORDERED: Atorvastatin Calcium 20 MG TAB PO SCH (21:00)
--- NOTE | 2020-08-30 08:13 | DIS ---
DATE OF ADMISSION: 08/27/2020 DATE OF DISCHARGE: 08/28/2020 RESIDENT: Marisol Mera DO ADMITTING ATTENDING: Sadiq Clifford MD DISCHARGE ATTENDING: Vahid Bauer MD CONSULTS: None. PROCEDURES: None. PRIMARY DIAGNOSIS: Atypical chest pain, likely 2/2 MSK. SECONDARY DIAGNOSES: Right lower extremity pain, likely MSK; hypertension; gastroesophageal reflux disease; end-stage renal disease, Sunday, Sunday, and Sunday, HLD; HFpEF. DISCHARGE MEDICATIONS: 1. Aspirin 81 mg p.o. daily. 2. Atorvastatin 40 mg p.o. daily. 3. Clopidogrel 75 mg p.o. daily. 4. Docusate 100 mg p.o. daily. 5. Insulin Detemir 20 units SC h.s. 6. Levothyroxine sodium 75 mcg p.o. daily. 7. Lidocaine 30 g topical p.r.n. 8. Lubiprostone 24 mcg p.o. b.i.d. 9. Meclizine 25 mg p.o. daily. 10. Metoprolol succinate 25 mg p.o. daily. 11. Nitroglycerin 0.4 mg SL ASDIR 30 days. 12. Pantoprazole 40 mg p.o. daily. 13. Patiromer calcium sorbitex one pack p.o. daily. 14. Sertraline HCL 25 mg p.o. daily. 15. Sevelamer carbonate 1600 mg p.o. t.i.d. with meals. 16. Spironolactone 25 mg p.o. daily. DISCONTINUED MEDICATIONS: None. HISTORY OF PRESENT ILLNESS/HOSPITAL COURSE: Patient is a 64-year-old female with past medical history of IDDM; ESRD, Sunday, Sunday, and Sunday; HFpEF; hypothyroid; IBS, with recent mitral valve repair, who presented with left-sided chest pain that radiated to the back that presented during dialysis that morning.. The patient had a recent admission in June for CHF exacerbation and was transferred to [facility] in [place], for which she had to have a mitral valve repair. Her next follow up with her electrical unit rebuilder is on 08/31/2020. The patient's cardiac workup included a HEART score of 4. EKG NS with nonspecific ST-changes. Negative troponins x3. Patient had reproducible left wall chest pain. The patient had a heart cath in June that showed mild CAD, severe MR, and pulmonary artery hypertension. Discussed with on-call cardiology due to negative heart cath, negative troponins, and positive chest wall tenderness, the patient cleared to follow up with electrical unit rebuilder as planned on 08/31/2020. On second day of admission, patient's chest pain was completely resolved. Of note, the patient complained of right lower extremity pain with a positive Moses sign and a venous ultrasound of the right lower extremity ordered which was negative, right lower extremity pain likely musculoskeletal. DISPOSITION: Stable. DISCHARGE INSTRUCTIONS: 1. Location: Home. 2. Diet: Renal diet. 3. Activity: Ad jorge. 4. Followup with your electrical unit rebuilder on 08/31/2020. 5. Followup with your primary care physician in 7 days. Job ID: [id number] [id number]
== END 2020-08-28 18:00 | disposition home or self-care (01) ==
LOC: ERS 09:46 → 2SW 14:11
PROVIDERS: ADMIT Family Medicine; ATTEND Family Medicine
DX: R07.89 Other chest pain (principal); I13.2 Hypertensive heart and chronic kidney disease with heart failure and with stage 5 chronic kidney disease, or end stage renal disease; N18.6 End stage renal disease; I50.30 Unspecified diastolic (congestive) heart failure; E78.5 Hyperlipidemia, unspecified; K21.9 Gastro-esophageal reflux disease without esophagitis; K58.9 Irritable bowel syndrome, unspecified; M79.604 Pain in right leg; I25.118 Atherosclerotic heart disease of native coronary artery with other forms of angina pectoris; D64.9 Anemia, unspecified; F41.9 Anxiety disorder, unspecified; F32.9 Major depressive disorder, single episode, unspecified; Z79.02 Long term (current) use of antithrombotics/antiplatelets; Z79.4 Long term (current) use of insulin; Z79.82 Long term (current) use of aspirin; Z79.899 Other long term (current) drug therapy; Z88.2 Allergy status to sulfonamides; Z99.2 Dependence on renal dialysis; Z20.828 Contact with and (suspected) exposure to other viral communicable diseases
CPT/HCPCS: 36415; 36416; 71045; 80048; 80053; 83880; 84484; 85007; 85025; 85027; 87635; 90471; 90732; 93005; 96372; G0009; G0378; J1644; J1815; U0003

== ENCOUNTER 2021-12-19 06:40 | Observation (INO) | payer MEDICARE, OTHER ==
[2021-12-19] MEDS ORDERED: Nitroglycerin 2% Ointment 1 INCH/1 GM Packet ONE (07:40)
[2021-12-19 09:53] LABS: #Eosinphils 0.2 thou/uL (0.0-0.7); #Lymphocytes 1.2 thou/uL (1.20-3.40); #Monocytes 0.7 thou/uL (0.11-0.59); #Neutrophils 3.6 thou/uL (1.40-6.50); %Basophils 0.8 % (0.0-1.0); %Eosinophils 2.7 % (0.0-10.0); %Lymphocytes 21.7 % (21.0-51.0); %Monocytes 12.2 % (0.0-10.0); %Neutrophils 62.6 % (42.0-75.0); Hemoglobin 10.5 g/dL (12.0-16.0); Mean Corpuscular HGB CONC 31.5 g/dL (32.0-36.0); Mean Corpuscular Hemoglobin 30.8 pg (27.0-31.0); Mean Corpuscular Volume 97.8 fL (78.0-98.0); Mean Platelet Volume 7.7 fL (7.4-10.4); Platelet Count 214 thou/uL (130-400); RBC Distribution Width 12.8 % (11.5-14.5); White Blood Cell (WBC) Count 5.7 thou/uL (4.8-10.8)
[2021-12-19 10:18] LABS: ALT (SGPT) 12 U/L (8-55); AST (SGOT) 22 U/L (5-34); Albumin 3.4 g/dL (3.4-4.8); Alkaline Phosphatase 101 U/L (40-110); Anion Gap 18 mmol/L (10-20); BUN (Urea Nitrogen) 42 mg/dL (9.8-20.1); Bilirubin, Total 0.7 mg/dL (0.2-1.2); Calc. Creatinine Clearance 0 mL/min (70-130); Calcium 8.3 mg/dL (7.8-10.44); Carbon Dioxide 26 mmol/L (23-31); Chloride 97 mmol/L (98-107); Globulin 3.6 g/dL (2.4-3.5); Glucose 149 mg/dL (80-115); Sodium 136 mmol/L (136-145)
[2021-12-19] MEDS ORDERED: Ondansetron ODT 4 MG TAB PO PRN (11:52)
[2021-12-19] MEDS ORDERED: Senokot S 8.6-50 MG TAB PO PRN (11:52)
[2021-12-19] MEDS ORDERED: Nitroglycerin 0.4 MG TAB (25 Tab Bottle) SL PRN (11:52)
[2021-12-19] MEDS ORDERED: Ondansetron PF 4 MG/2 ML Vial IVP PRN (11:52)
[2021-12-19] MEDS ORDERED: Dextrose 5% in Water 1,000 ML IV PRN (12:07)
[2021-12-19] MEDS ORDERED: Dextrose 50% Abboject 50 ML SYRINGE SLOW IVP PRN (12:07)
[2021-12-19] MEDS ORDERED: Aspirin 325 mg Enteric Coated Tablet PO SCH (12:30)
[2021-12-19 14:26] LABS: Troponin I 0.014 ng/mL (< 0.028)
[2021-12-19] MEDS: Nitroglycerin 2% Ointment 1 INCH/1 GM Packet TOP SCH (14:57)
[2021-12-19 15:35] LABS: HBSAg Index 0.29 S/CO (0-0.99); Hep B Surf Ag Non-Reactive S/CO (NonReactive)
[2021-12-19 16:29] VITALS: BMI 32.5
[2021-12-19] MEDS: Acetaminophen 325 MG TAB PO PRN (16:38)
[2021-12-19 17:14] LABS: Troponin I 0.017 ng/mL (< 0.028)
[2021-12-19 17:31] LABS: SARS-CoV-2 PCR by NAA DETECTED (NotDetected)
[2021-12-19] MEDS ORDERED: Atorvastatin Calcium 20 MG TAB PO SCH (21:00)
[2021-12-19] MEDS ORDERED: Lantus 1000 UNITS/10 ML VIAL SC SCH (21:00)
[2021-12-20] MEDS: Metoprolol Tartrate 25 MG TAB PO SCH ×2 (00:42→08:40)
[2021-12-20] MEDS: Heparin 5,000 UNITS/ML VIAL SC SCH ×2 (01:50→08:39)
[2021-12-20] MEDS: Nitroglycerin 2% Ointment 1 INCH/1 GM Packet TOP SCH ×3 (01:53→14:30)
[2021-12-20] MEDS: Acetaminophen 325 MG TAB PO PRN (04:51)
[2021-12-20 04:52] LABS: CKMB 1.6 ng/mL (0-6.6)
[2021-12-20] MEDS: HumaLOG 300 UNITS/3 ML VIAL SC PRN ×2 (06:02→06:03)
[2021-12-20] MEDS ORDERED: Clopidogrel Bisulfate 75 MG TAB PO SCH (09:00)
[2021-12-20] MEDS ORDERED: Amlodipine 5 MG TAB PO SCH (09:00)
[2021-12-20] MEDS ORDERED: Aspirin 325 mg Enteric Coated Tablet PO SCH (09:00)
[2021-12-20 13:12] VITALS: BP 138/68; TEMP 99.1
== END 2021-12-20 15:30 | disposition home or self-care (01) ==
LOC: ERS 06:40 → ERHOLD 11:16 → 2NO 16:13
PROVIDERS: ADMIT Internal Medicine; ATTEND Internal Medicine
DX: U07.1 COVID-19 (principal); R07.89 Other chest pain; E11.21 Type 2 diabetes mellitus with diabetic nephropathy; E11.22 Type 2 diabetes mellitus with diabetic chronic kidney disease; N18.6 End stage renal disease; D63.1 Anemia in chronic kidney disease; E78.5 Hyperlipidemia, unspecified; I11.0 Hypertensive heart disease with heart failure; I50.20 Unspecified systolic (congestive) heart failure; K21.9 Gastro-esophageal reflux disease without esophagitis; N25.81 Secondary hyperparathyroidism of renal origin; I25.10 Atherosclerotic heart disease of native coronary artery without angina pectoris; I08.1 Rheumatic disorders of both mitral and tricuspid valves; Z91.14 Patient's other noncompliance with medication regimen; Z79.02 Long term (current) use of antithrombotics/antiplatelets; Z79.4 Long term (current) use of insulin; Z79.82 Long term (current) use of aspirin; Z79.899 Other long term (current) drug therapy; Z88.2 Allergy status to sulfonamides; Z99.2 Dependence on renal dialysis
CPT/HCPCS: 71045; 82553; 82962 ×2; 84484 ×2; 87040; 87340; 93005; 93306; G0378 ×3; U0003; U0005; 36415; 36416; 80053; 84443; 85025; J1644; J1815

== ENCOUNTER 2022-05-27 13:56 | Emergency (ER) | payer MEDICARE, OTHER ==
[2022-05-27] MEDS ORDERED: HYDROcodone/Acetaminophen 5/325 mg Tablet ONE (16:37)
== END 2022-05-27 16:39 | disposition home or self-care (01) ==
LOC: ERS 13:56
DX: M25.532 Pain in left wrist (principal); E03.9 Hypothyroidism, unspecified; E78.5 Hyperlipidemia, unspecified; E78.00 Pure hypercholesterolemia, unspecified; I13.2 Hypertensive heart and chronic kidney disease with heart failure and with stage 5 chronic kidney disease, or end stage renal disease; E11.22 Type 2 diabetes mellitus with diabetic chronic kidney disease; N18.6 End stage renal disease; I50.9 Heart failure, unspecified; M19.90 Unspecified osteoarthritis, unspecified site; Z99.2 Dependence on renal dialysis; Z79.4 Long term (current) use of insulin; Z79.899 Other long term (current) drug therapy